=== PATIENT | female | born 1970 | race Caucasian/White ===

== ENCOUNTER 2023-08-14 07:14 | Day surgery (SDC) | payer MEDICARE, MEDICAID ==
[~2023-08-14] VITALS: Ht 157.5 cm; Wt 61.3 kg
[~2023-08-14 07:14] MED LIST: SODIUM CHLORIDE 0.9% 1,000 ML ONE
[2023-08-14] MEDS ORDERED: FentaNYL CITRATE PF 100 MCG/2 ML VIAL ONE (07:37)
[2023-08-14] MEDS ORDERED: MIDAZOLAM HCL 2 MG/2 ML VIAL ONE (07:37)
[2023-08-14] MEDS: SODIUM CHLORIDE 0.9% 1,000 ML IV ONE (08:21)
[2023-08-14] MEDS ORDERED: CLON-592 PO (09:26)
[2023-08-14] MEDS ORDERED: PROM-223 PO (09:26)
[2023-08-14] MEDS ORDERED: HYDR-4584 PO (09:26)
[2023-08-14] MEDS ORDERED: OXYC-618 PO (09:26)
[2023-08-14] MEDS ORDERED: OMEP20 PO (09:26)
[2023-08-14] MEDS ORDERED: MECL-302 PO (09:26)
[2023-08-14] MEDS ORDERED: POTA15TA11 PO (09:26)
[2023-08-14] MEDS ORDERED: QUET200T PO (09:26)
[2023-08-14] MEDS ORDERED: LEVO2.5S4 PO (09:26)
[2023-08-14] MEDS ORDERED: LAMO-24 PO (09:26)
[2023-08-14] MEDS ORDERED: METO-325 PO (09:26)
[2023-08-14] MEDS ORDERED: MIRT-149 PO (09:26)
[2023-08-14] MEDS ORDERED: MONT-35 PO (09:26)
[2023-08-14] MEDS ORDERED: AZEL23SP2 NASAL ×2 (09:26)
[2023-08-14] MEDS ORDERED: FLUT1BLS IH (09:26)
[2023-08-14] MEDS ORDERED: ALBU18HF12 IH (09:26)
[2023-08-14] MEDS ORDERED: ESOM40CA54 PO (09:26)
[2023-08-14] MEDS ORDERED: LINA145C PO (09:26)
[2023-08-14 09:43] VITALS: PULSE 93; RESP 20; O2SAT 96
[2023-08-14] MEDS ORDERED: MethylPREDNISolone SOD SUCC 40 MG/ML VIAL ONE (10:04)
[2023-08-14] MEDS: MethylPREDNISolone SOD SUCC 40 MG/ML VIAL IVP ONE (10:10)
[2023-08-14] MEDS ORDERED: BENZOCAINE 20% 50 MCG/SPRAY 57 GM ONE (12:00)
[2023-08-14] MEDS ORDERED: LIDOCAINE 2% 11 ML JELLY ONE (12:00)
[2023-08-14] MEDS ORDERED: LIDOCAINE 4% 50 ML SOLUTION ONE (12:00)
[2023-08-14] MEDS ORDERED: ALBUTEROL SULFATE 2.5 MG/0.5 ML NEB SOLUTION NEB ONE (12:00)
== END 2023-08-14 11:20 | disposition home or self-care (01) ==
LOC: SURGERY 07:14
PROVIDERS: ATTEND Internal Medicine Critical Care Medicine
DX: J38.4 Edema of larynx (principal); B37.0 Candidal stomatitis; I10 Essential (primary) hypertension; Z88.2 Allergy status to sulfonamides; G47.30 Sleep apnea, unspecified; Z87.01 Personal history of pneumonia (recurrent); Z87.442 Personal history of urinary calculi; Z79.899 Other long term (current) drug therapy
CPT/HCPCS: 31623; 87206; 87101; 87220; 87070; 88108; 31624; 94640; 71045; 87015; J3010; J2250; J2920; Q9967; J7030; J7613; Z7610